=== PATIENT | female | born 1965 | race Caucasian/White ===

== ENCOUNTER 2016-05-15 16:17 | Emergency (ER) | payer OTHER ==
[~2016-05-15] VITALS: Ht 167.6 cm; Wt 77.3 kg
[~2016-05-15 16:17] MED LIST: CITA10TA9 PO; PANT20TA2 PO
[2016-05-15 16:37] VITALS: BP 174/109; PULSE 81; RESP 13; O2SAT 98
--- NOTE | 2016-05-15 17:31 | DRSVH ---
PROCEDURE: CT BRAIN WITHOUT CONTRAST ([id number]) INDICATIONS: HEAD TRAUMA TECHNIQUE: Noncontrast 4.5 mm thick angled axial sections acquired from the foramen magnum to the vertex, with c oronal reformats. COMPARISON: None. FINDINGS: Image quality: Excellent. CSF spaces: Basal cisterns are patent. No extra-axial fluid collections. Ventricles are normal in size and shape. Brain: No midline shift. No intracranial masses or hemorrhage. Sellers-white matter interface is norm al. Skull and face: Calvarium and visualized facial bones are intact, without suspicious lesions. Sinuses: Visualized sinuses and mastoids are clear. IMPRESSION: No acute intracranial disease process. Dictated by: Monica Rincon MD, PhD on 05/15/2016 at 17:28 Approved by: Monica Rincon MD, PhD on 05/15/2016 at 17:30
--- NOTE | 2016-05-15 18:47 | ED.REPORT ---
HPI-Trauma Minor / Fall Date of Service May 15, 2016 ED Provider: Doc,Ed MD History of Present Illness: caught heel in broken tile and fell hitting knees first and then right side of head last evening in [place]. Initially the whole face was numb but has decreased. Now around mouth. has full range of motion of tongue and facial muscles, no speech deficits. [facility]. 10/02 pain Nursing Notes Stated Complaint: GLF, FACIAL NUMBNESS Chief Complaint: Head, Face, Neck Trauma Nursing Notes Reviewed: Yes Allergies: Coded Allergies: No Known Allergies (Unverified , 02/09/15) Scheduled Citalopram (Citalopram) 10 Mg Tablet 10 MG PO DAILY Pantoprazole DR (Pantoprazole DR) 20 Mg Tablet.dr 20 MG PO DAILY General Time Seen by MD: 18:46 Chief Complaint Fall Hx Obtained From: Patient Onset Occurred: Yesterday Symptom Duration: Since onset Caused by: Accidental Location: Face Head Severity: Current: Pain level 8 out of 10 Past Medical History Past Medical History Denies: Asthma Past Surgical History achilles and peronal tendons repaired Smoking History Former Smoker (quit smoking 17 years ago) Social History Alcohol Use: "Social" Drug Use: Denies drug use Occupation single lives by self, work for [employer] 05/15/2016 Ambulatory Status Independent Review of Systems Basic Review of Systems : No dysuria, No frequency Psychiatric: Normal thought content Physical Exam Initial Vital Signs Vital Signs (First) Date Time Temp Pulse Resp B/P Pulse Ox O2 Delivery O2 Flow Rate FiO2 05/15/16 16:37 36.4 81 13 174/109 98 Room Air Initial VS: Reviewed, Vital signs abnormal Head / Eyes: Atraumatic, Normocephalic, PERRL ENT: Mucous membranes moist, Conjunctiva normal, No scleral icterus Respiratory: Breath sounds normal, Clear to auscultation, No respiratory distress Cardiovascular: Regular rate & rhythm, Heart sounds normal, Intact distal pulses Abdomen / GI: Soft, Non-tender, No guarding, No rebound, No distention Back: No CVA tenderness Lymphatic: No lymphadenopathy Extremities: Vascular intact, Neuro intact, No swelling, No tenderness Skin: Warm, Dry, No cyanosis Neurologic: Alert, Oriented, Nonfocal Psychiatric: Mood/affect normal, Behavior normal, Normal thought content General/Constitutional: Awake, Alert, No acute distress, Well appearing, Well developed, Well hydrated, Well nourished, Cooperative, Not toxic appearing Neck: Atraumatic, Supple, No meningismus, Full range of motion, No adenopathy, No swelling, Non-tender, No midline vertebral tend Head / Eyes: Atraumatic, Normocephalic, PERRL, EOMI mild swelling over right check, no ecchymosis noted ENT: Atraumatic, Airway patent, Mucous membranes moist, Pharynx NL, No peritonsillar abscess Respiratory / Chest: Atraumatic, Breath sounds NL, Breath sounds = bilat, No respiratory distress Cardiovascular: Heart rate NL, Regular rhythm, Heart sounds NL, No gallop, No murmurs, No rubs Abdomen: Atraumatic, Soft, Non-tender, McBurney's non-tender Interpretation & Diagnostics CT Head Interpretation INDICATIONS: HEAD TRAUMA TECHNIQUE: Noncontrast 4.5 mm thick angled axial sections acquired from the foramen magnum to the vertex, with coronal reformats. COMPARISON: None. FINDINGS: Image quality: Excellent. CSF spaces: Basal cisterns are patent. No extra-axial fluid collections. Ventricles are normal in size and shape. Brain: No midline shift. No intracranial masses or hemorrhage. Sellers-white matter interface is normal. Skull and face: Calvarium and visualized facial bones are intact, without suspicious lesions. Sinuses: Visualized sinuses and mastoids are clear. IMPRESSION: No acute intracranial disease process. Dictated by: Monica Rincon MD, PhD on 05/15/2016 at 17:28 Re-Eval/Medical Decision Med Decision/Clinical Course 51 year old female presents for evualation after falling in [place] last evening. [place] LOC or vomiting. Face with mild swelling on right check. No neuro deficits. head CT is negative. No sign of bleeding or bony damage Discharge & Departure Impression: Primary Impression: Concussion Encounter type: initial encounter Loss of consciousness presence/duration: without LOC Qualified Code: S06.0X0A - Concussion without loss of consciousness, initial encounter Additional Impressions: Closed head injury Encounter type: initial encounter Qualified Code: S09.90XA - Unspecified injury of head, initial encounter Fall Encounter type: initial encounter Qualified Code: W19.XXXA - Unspecified fall, initial encounter Otitis externa Disposition: Home Patient Instructions: Concussion (ED), Minor Head Injury (ED), Otitis Externa ( ED) Additional Instructions: The head CT looks good. No sign of bony damage or brain bleeding. The exam is reassuring. Exam of your ears indicate you have a canal infection. Use ear drops 4 drops 3 times a day for 7 days. Do not use q-tips. Use ibuprofen 800 mg 3 times a day for 5 days. Can use hydrocodone 1 at night as needed for severe pain. Use zofran 1 up to 2 times a day as needed for nausea. This can cause constipation, make sure you increase fiber in your diet with this. Note for work provided. Follow with primary care for a recheck next week. I am sorry you fell. Referrals: Sourav Eckert MD (PCP) EDSupervising Provider for APC: Zena Mccartney MD copies to: Sourav Eckert MD, Sue ARNP May 15, 2016 18:47
[2016-05-15 19:41] VITALS: BP 147/103; PULSE 78; RESP 16; O2SAT 99
== END 2016-05-15 19:41 | disposition home or self-care (01) ==
LOC: SED 16:17 → EDBD 16:17 → SED 19:41
DX: S06.0X0A Concussion without loss of consciousness, initial encounter (principal); S09.90XA Unspecified injury of head, initial encounter; W19.XXXA Unspecified fall, initial encounter; Y93.89 Activity, other specified; Y92.9 Unspecified place or not applicable; Y99.8 Other external cause status; H60.93 Unspecified otitis externa, bilateral; Z87.891 Personal history of nicotine dependence